=== PATIENT | male | born 1995 | race Caucasian/White ===

== ENCOUNTER 2021-06-22 17:56 | Emergency (ER) | payer OTHER, SELFPAY ==
[2021-06-22 18:12] VITALS: BP 106/69; PULSE 82; RESP 16; TEMP 36.6; O2SAT 99
--- NOTE | 2021-06-22 18:31 | ED.EAR ---
HPI - Ear Problem General Chief complaint: Ear Stated complaint: ear pain Source: patient Mode of arrival: ambulatory Limitations: no limitations History of Present Illness HPI Narrative: Patient is a 25-year-old male who presents complaining of pruritus to bilateral ears and pain to left ear. He reports mild itching x2 weeks, increasing over the past 2 days. He reports pain to left ear starting this a.m. He denies rhinorrhea or congestion, sore throat, chills body aches or fever. Patient reports vaccinated for Covid x2. He denies significant medical history. He denies all complaints at this time. Complaint: ear pain Related Data Allergies Allergy/AdvReac Type Severity Reaction Status Date / Time No Known Allergies Allergy Verified 06/22/21 18:29 Review of Systems Review of Systems: CONSTITUTIONAL: Denies fever, chills, or sweats. EYES: Denies visual changes, redness, or discharge. ENT: Reports left ear pain CARDIOVASCULAR: Denies chest pain, palpitations, or edema. RESPIRATORY: Denies cough or dyspnea. GASTROINTESTINAL: Denies abdominal pain, nausea, vomiting, or diarrhea. GENITOURINARY: Denies dysuria or hematuria. SKIN: Denies rash or itching. MUSCULOSKELETAL: Denies back pain, joint pain, or myalgia. NEUROLOGIC: Denies headache, numbness, dizziness, or weakness. PSYCHIATRIC: Denies anxiety or depression. [facility] Past Medical History Medical History (Updated 06/22/21 @ 18:36 by HAYLEE Dorsey) Asthma Social History Social History (Updated 06/22/21 @ 18:32 by HAYLEE Dorsey) Smoking status: Never smoker Alcohol intake: never Substance use: never Living arrangements: with family Occupation/Education: student Comments At the time of signature, I have reviewed and agree with nursing past medical, surgical, social, and family history unless otherwise noted. Please see nursing chart for further information. There is no relevant family history pertinent to the presenting complaint. Exam Narrative: GENERAL: Well-appearing, well-nourished, and in no acute distress. HEAD: Normocephalic, atraumatic. EYES: EOMI. No redness or drainage. Conjunctiva are normal. ENT: Mucous membranes pink and moist. Left ear canal erythematous, TM normal CHEST: No respiratory distress. HEART: Regular rate and rhythm. EXTREMITIES: Normal range of motion. No edema. SKIN: Warm, dry, no rash. NEURO: No focal deficits. Alert and oriented x3. Gait steady. PSYCH: Normal affect. No signs of depression or anxiety. Course Vital Signs Vital signs: Vital Signs Temperature 36.6 C 06/22/21 18:12 Pulse Rate 82 06/22/21 18:12 Respiratory Rate 16 06/22/21 18:12 Blood Pressure 106/69 06/22/21 18:12 Pulse Oximetry 99 06/22/21 18:12 Temperature 36.6 C 06/22/21 18:12 Pulse Rate 82 06/22/21 18:12 Respiratory Rate 16 06/22/21 18:12 Blood Pressure 106/69 06/22/21 18:12 Pulse Oximetry 99 06/22/21 18:12 Reviewed Medical Decision Making MDM Narrative Medical decision making narrative: Patient appears to have left otitis externa. Discussed her drug with patient. Discussed use of Tylenol or ibuprofen for pain. Patient agrees with plan of care. Patient is stable for discharge home with outpatient follow-up as needed. Vital Signs Vital Signs: Vital Signs Temperature 36.6 C 06/22/21 18:12 Pulse Rate 82 06/22/21 18:12 Respiratory Rate 16 06/22/21 18:12 Blood Pressure 106/69 06/22/21 18:12 Pulse Oximetry 99 06/22/21 18:12 Temperature 36.6 C 06/22/21 18:12 Pulse Rate 82 06/22/21 18:12 Respiratory Rate 16 06/22/21 18:12 Blood Pressure 106/69 06/22/21 18:12 Pulse Oximetry 99 06/22/21 18:12 Reviewed Critical Care Time Critical Care Time Critical Care Time: No Discharge Plan Discharge Clinical Impression: Otitis externa Patient Disposition: Home, Self-Care Condition: Stable Instructions: Antibiotic Form, Swimmer's Ear (GEN) A
== END 2021-06-22 18:58 | disposition home or self-care (01) ==
PROVIDERS: Emergency Provider Nurse Practitioner
DX: H60.92 Unspecified otitis externa, left ear (principal); J45.909 Unspecified asthma, uncomplicated
CPT/HCPCS: 99213; G0463

== ENCOUNTER 2021-06-30 11:46 | Emergency (ER) | payer OTHER, SELFPAY ==
--- NOTE | ~2021-06-30 | XR_ITS ---
XR shoulder LT min 2V 06/30/2021 12:09 INDICATION: Left shoulder pain PROCEDURE: 4 views left shoulder COMPARISON: No prior studies for comparison. FINDINGS: Fracture, dislocation or subluxation is not identified. The soft tissues appear within norm al limits. No foreign bodies are identified. IMPRESSION: 1: NO ACUTE BONE OR JOINT ABNORMALITY IDENTIFIED. Reviewed, dictated and finalized at location A.
[2021-06-30 11:53] VITALS: BP 118/77; PULSE 79; RESP 18; TEMP 36.9; O2SAT 100
--- NOTE | 2021-06-30 11:54 | ED.UPPEXIN ---
HPI - Extremity Injury (Upper) General Chief Complaint: Extremity Injury, Upper Stated Complaint: L SHOULDER PAIN Time Seen by Provider: 06/30/21 11:54 Source: patient and RN notes reviewed Mode of arrival: ambulatory Limitations: no limitations History of Present Illness HPI narrative: 25-year-old male presents to the [facility] with complaints of left anterior shoulder pain for about 1 month. Related Data Allergies Allergy/AdvReac Type Severity Reaction Status Date / Time No Known Allergies Allergy Verified 06/22/21 18:29 Review of Systems Review of Systems: All systems reviewed & are unremarkable except as noted in HPI and below Constitutional: Constitutional: Reports no additional constitutional complaints, Denies chills and Denies fever(s) Eyes: Eyes: Reports no additional eye complaints ENT: Reports system reviewed and no additional complaints, except as documented Cardiovascular: Cardiovascular: Reports no additional cardiovascular complaints Respiratory: Respiratory: Reports no additional respiratory complaints Musculoskeletal: Musculoskeletal: Reports as per HPI and Reports arthralgias (left shoulder) Integumentary/Breasts: Skin/Breast: Reports system reviewed and no additional complaints, except as docu Neurologic: Reports system reviewed and no additional complaints, except as documented Psychiatric: Psychiatric: Reports no additional psychiatric complaints Allergic/Immunologic: Allergic/Immunologic: Reports no additional allergic/immunologic complaints PMFSH Past Medical History Medical History Asthma Surgical History Surgical History (Updated 06/30/21 @ 14:42 by Margo Vergara) No history of previous surgery Social History Social History Smoking status: Never smoker Alcohol intake: never Substance use: never Comments At the time of my signature, I reviewed and agree with the nursing past medical, surgical, social, and family history. There is no relevant family history pertinent to the patient complaint. Exam Const: General: healthy appearing, no acute distress and alert Nutritional Appearance: well nourished and thin Orientation/consciousness: patient oriented x3 Limitations: no limitations HENMT: Head: normal to inspection Eyes: Pupils: Equal, round and reactive pupils present Neck: Neck: normal visual inspection, no lymphadenopathy and no meningeal signs Chest: Chest palpation & inspection: normal inspection of the chest Resp: Effort & Inspection: normal respiratory effort and no use of accessory muscles Auscultation: clear to auscultation bilaterally, no crackles, no rales, no rhonchi and no wheezes Cardio: Rate: regular rate Rhythm: regular rhythm Back/Spine/Pelvis: Back: no CVA tenderness Skin: General skin exam: normal color Rashes: no rashes Wounds: no wounds Neuro: General: patient oriented x3, moves all extremities, no meningeal signs and no focal motor deficits Speech: normal speech Gait exam (Neuro): Normal gait present Extrem: General: normal to inspection and no pedal edema Left upper extremity: shoulder/upper arm tenderness of the A-C joint (Anterior), axillary nerve sensory function normal and normal ROM; no abrasions, no ecchymosis, no foreign bodies, no penetrating wound, no deformity and no unsual warmth Shoulder/upper arm images: 1. tender to palpation. Pain with ROM. NO bruising or swelling Psych: Appearance: grossly normal and well kempt Mental Status: mental status grossly normal Affect: normal affect Attitude: cooperative Thought content: Yes Normal thought content present Course Course Emergency Course: Discharge instructions reviewed with patient, as well as provided in writing per nursing staff. The instructions also include specific and strict return/GO TO THE ER as well as f/u information. All questions have been answere
== END 2021-06-30 12:30 | disposition home or self-care (01) ==
PROVIDERS: Emergency Provider Nurse Practitioner
DX: S46.912A Strain of unspecified muscle, fascia and tendon at shoulder and upper arm level, left arm, initial encounter (principal); X58.XXXA Exposure to other specified factors, initial encounter; J45.909 Unspecified asthma, uncomplicated
CPT/HCPCS: 73030; 99213; G0463

== ENCOUNTER 2025-06-18 08:11 | Emergency (ER) | payer OTHER, MEDICAID, SELFPAY ==
--- NOTE | 2025-06-18 08:14 | ED_ITS ---
HPI - Headache General Chief Complaint: Headache Stated Complaint: Headache Source: patient and RN notes reviewed Mode of arrival: ambulatory Limitations: no limitations History of Present Illness HPI Narrative: Patient is a 29-year-old male who presents to the [facility] with complaints of headache. He states that the headache has been ongoing for over the past week. He states that he had a mild intermittent headache when he was sick last week with cough and congestion. He states that the cough and congestion resolved, but the intermittent headache has continued. He denies recent fevers. Denies dizziness or visual disturbance. Patient does report history of migraine headaches. He states that he does work nights and has been on this cycle for the past 4 months, so he does not know if that is contributing to the headache. Patient is alert and oriented x4 with no obvious neurological deficits. Related Data Allergies Allergy/AdvReac Type Severity Reaction Status Date / Time No Known Allergies Allergy Verified 06/18/25 08:24 Review of Systems Review of Systems: CONSTITUTIONAL: Denies fever, chills, or sweats. EYES: Denies visual changes, redness, or discharge. ENT: Denies otalgia and sore throat CARDIOVASCULAR: Denies chest pain, palpitations, or edema. RESPIRATORY: Denies cough or dyspnea. GASTROINTESTINAL: Denies abdominal pain, nausea, vomiting, or diarrhea. GENITOURINARY: Denies dysuria or hematuria. SKIN: Denies rash or itching. MUSCULOSKELETAL: Denies back pain, joint pain, or myalgia. NEUROLOGIC: Reports headache but denies numbness or weakness. Pertinent positives per HPI. PMFSH Past Medical History Medical History Asthma Surgical History Surgical History No history of previous surgery Social History Social History Smoking status: Never smoker Alcohol intake: never Substance use: never Living arrangements: with family Occupation/Education: student Comments At the time of my signature, I reviewed and agree with the nursing past medical, surgical, social, and family history. There is no relevant family history pertinent to the patient complaint. Exam Narrative: GENERAL: This is a well-nourished, well-developed patient, in no apparent distress. HEAD: normocephalic, atraumatic. EYES: PERRL. Sclera clear/white. Vision is grossly intact. EARS: External ears normal, auditory canals clear and without drainage, TMs normal without perforation. Hearing grossly intact. NOSE: External nose normal with no obvious nasal discharge, nares without redness, no rhinorrhea. THROAT: Mucous membranes moist, posterior pharynx clear. NECK: Neck supple, non-tender without lymphadenopathy, masses or thyromegaly. CARDIOVASCULAR: Regular rate and rhythm without murmurs, gallops, or rubs. RESPIRATORY: Clear to auscultation. Breath sounds equal bilaterally. No wheezes, rales, or rhonchi. GASTROINTESTINAL: Abdomen soft, non-tender, nondistended. Bowel sounds are active. No hepato-splenomegaly, or palpable masses. No guarding. SKIN: warm, intact with no suspicious lesions or rash, good texture and turgor. NEURO: awake, alert, and oriented to person, place and time. There were no obvious focal neurologic abnormalities. Course Course Level of Care: Express Care Visit Vital Signs Vital signs: Vital Signs Temperature 98.2 F 06/18/25 08:22 Pulse Rate 72 06/18/25 08:22 Respiratory Rate 16 06/18/25 08:22 Blood Pressure 120/81 06/18/25 08:22 Pulse Oximetry 100 06/18/25 08:22 Temperature 98.2 F 06/18/25 08:22 Pulse Rate 72 06/18/25 08:22 Respiratory Rate 16 06/18/25 08:22 Blood Pressure 120/81 06/18/25 08:22 Pulse Oximetry 100 06/18/25 08:22 Reviewed MDM - Headache MDM Narrative Medical decision making narrative: Patient was given a dose of IM dexamethasone IM Toradol for relief of his headache. He will be prescribed Toradol to take p.r.n. as well as Flonase. Advised follow-up with primary care physician. Advised he go to the ED with worsening symptoms or development of fever. Differential Diagnosis Differential diagnosis: Likely migraine, tension headache, headache, sinusitis and other (viral illness) Critical Care Time Critical Care Time Critical Care Time: No Discharge Plan Discharge Clinical Impression: Headache Qualifiers: Headache type: unspecified Headache chronicity pattern: acute headache Intractability: not intractable Qualified Code(s): R51.9 - Headache, unspecified Patient Disposition: Home Condition: Stable Instructions: Acute Headache (ED) Additional Instructions: Take medications as prescribed. Follow-up with primary care physician. Go to the ED with worsening symptoms or development of fever. Patient Language: Serbian Prescriptions: New ketorolac 10 mg tablet 10 mg PO Q8H PRN (Reason: pain) Qty: 20 0RF Rx Instructions: maximum total duration of 5 days from all oral, intranasal, or parenteral formulations fluticasone propionate [Flonase Allergy Relief] 50 mcg/actuation spray,suspension 1 spray intranasal BID Qty: 16 0RF Rx Instructions: administer into each nostril Follow-up/Referrals: UNKNOWN,DOCTOR [Non-Staff] Time of Disposition: 08:31
[2025-06-18 08:22] VITALS: BP 120/81; PULSE 72; RESP 16; TEMP 36.8; O2SAT 100
[2025-06-18] MEDS: KETOROLAC (*BKC) 60 MG/2 ML VIAL IM (08:34)
[2025-06-18] MEDS: dexAMETHasone SOD PHOS INJ 10 MG/ML 1 ML VIAL 8 MG IM (08:35)
== END 2025-06-18 08:43 | disposition home or self-care (01) ==
PROVIDERS: Emergency Provider Nurse Practitioner
DX: R51.9 Headache, unspecified (principal); J45.909 Unspecified asthma, uncomplicated
CPT/HCPCS: 96372; 99214; G0463; J1100; J1885

== ENCOUNTER 2025-09-30 08:17 | Emergency (ER) | payer OTHER, SELFPAY ==
--- NOTE | ~2025-09-30 | XR_ITS ---
Examination: XR abdomen/kub 1V Clinical History: Bilateral Flank pain x 4 days, denies hx of stones Comparison: None Technique: 2 views supine abdomen Findings: Lung bases clear. No abnormal abdominal calcifications identified. Scattered colonic gas and stool. Liver enlarged. No acute bony abnormality. IMPRESSION: 1. No nephroureteral stones identified. 2. No acute abnormality. Reviewed, dictated and finalized at location R. POINTER
[2025-09-30 08:32] VITALS: BP 124/77; PULSE 83; RESP 16; TEMP 36.8; O2SAT 100
--- NOTE | 2025-09-30 08:49 | ED.MALEGU ---
HPI - Male Genitourinary General Chief complaint: Urogenital-Male Stated complaint: Side Pain Time Seen by Provider: 09/30/25 08:50 Source: patient and RN notes reviewed Mode of arrival: ambulatory Limitations: no limitations History of Present Illness HPI Narrative: 30-year-old male presents with concern for bilateral flank pain this started 5 days ago. He reports he had 1 episode of dysuria the last about a couple hours last week but otherwise no issues. He denies frequency urgency. He denies general malaise, fever, body aches, chills, sweats. Reports occasional nausea without vomiting. Reports intermittent lower abdominal discomfort. He reports when he drinks more water the symptoms are improved. He reports symptoms are not positional, he denies any aggravating factors. MD Complaint: other (Flank pain) Related Data Home Medications ?Medication ?Instructions ?Recorded ?Confirmed ?Last Taken ?Type No Home Medications 09/30/25 09/30/25 Unknown History Allergies Allergy/AdvReac Type Severity Reaction Status Date / Time No Known Allergies Allergy Verified 09/30/25 09:35 Review of Systems Review of Systems: CONSTITUTIONAL: Denies malaise, chills, sweats, or fever. CARDIOVASCULAR: Denies chest pain, palpitations, or edema. RESPIRATORY: Denies cough or dyspnea. GASTROINTESTINAL: Denies abdominal pain, nausea, vomiting, diarrhea GENITOURINARY: Reports 1 episode of dysuria. Denies frequency, urgency, suprapubic pressure. Reports bilateral flank pain. Denies hematuria. SKIN: Denies rash or itching. MUSCULOSKELETAL: Denies back pain or myalgia. All systems reviewed & are unremarkable except as noted in HPI and below [facility] Past Medical History Medical History Asthma Surgical History Surgical History No history of previous surgery Social History Social History Smoking status: Never smoker Alcohol intake: never Substance use: never Living arrangements: with family Occupation/Education: student Comments At time of signature, agree with nursing past medical, surgical, social and family history. There is no relevant family history pertinent to the presenting complaint Exam Narrative: GENERAL: Well-appearing, well-nourished, and in no acute distress. HEAD: Normocephalic. EYES: PERRLA, conjunctivae clear. NECK: Supple. No lymphadenopathy CHEST: Clear to auscultation. No respiratory distress. No jugular venous distension, thyromegaly, or carotid bruits. Carotids were easily palpable bilaterally. HEART: Regular rate and rhythm. ABDOMEN: Soft, mild lower abdominal discomfort, nondistended, no palpable or pulsatile masses, no guarding. No CVA tenderness EXTREMITIES: Normal range of motion. No edema. Normal strength and sensation. SKIN: Warm, dry, no rash. NEURO: Alert and oriented x3. PSYCH: Normal mood and affect Course Course Emergency Course: Patient is aware of diagnosis, understands and agrees to treatment plan. Anticipatory guidance given. Patient agrees to follow-up as directed and is aware of reasons to seek care at the emergency department. Portions of this record may have been created with voice recognition software Level of Care: Express [facility] Visit Vital Signs Vital signs: Vital Signs Temperature 98.3 F 09/30/25 08:32 Pulse Rate 83 09/30/25 08:32 Respiratory Rate 16 09/30/25 08:32 Blood Pressure 124/77 09/30/25 08:32 Pulse Oximetry 100 09/30/25 08:32 Temperature 98.3 F 09/30/25 08:32 Pulse Rate 83 09/30/25 08:32 Respiratory Rate 16 09/30/25 08:32 Blood Pressure 124/77 09/30/25 08:32 Pulse Oximetry 100 09/30/25 08:32 [facility] MDM Narrative Medical decision making narrative: Patient's urinalysis is normal, KUB does dot demonstrate calcifications. Patient is well-appearing and in no acute distress, is not having any fever, body aches, chills, sweats or UTI symptoms. Patient mild bilateral CVA tenderness and mild tenderness to deep palpation. Patient is not jaundiced. KUB does demonstrate liver enlargement. This was discussed with the patient in his options were given to him for follow-up with primary care versus transfer to the emergency department. Patient has an appoint with his primary care doctor and prefers to wait and keep that appointment and will go to the emergency room if his symptoms worsen. He was given reasons to seek care in the emergency room Differential Diagnosis Differential Diagnosis: I evaluated this patient in the express care. History is obtained from patient who is an independent historian and physical exam was performed.? Available medical records were reviewed. ? Exam findings and relevant testing show no acute concerns or changes; patient is non-toxic appearing and is in no distress. ? Exam findings and UA show no acute concerns or changes; patient is non-toxic appearing and is in no distress. No CMT, adnexal tenderness, or evidence of pelvic etiology. Differential diagnosis include pyelonephritis, STI, cystitis, urinary tract infection, acute abdomen, gastroenteritis, yeast infection Differential diagnosis and treatment plan were discussed with the patient. Patient agrees with discussion and after shared medical decision making agrees with plan of care. All questions were answered to the patient's satisfaction. Patient is appropriate for outpatient treatment and follow-up. Imaging Data My impression: Images reviewed, interpreted by radiologist, agree, see report. Radiologist's impression: Clinical History: Bilateral Flank pain x 4 days, denies hx of stones Comparison: None Technique: 2 views supine abdomen Findings: Lung bases clear. No abnormal abdominal calcifications identified. Scattered colonic gas and stool. Liver enlarged. No acute bony abnormality. IMPRESSION: 1. No nephroureteral stones identified. 2. No acute abnormality. Discharge Plan Discharge Clinical Impression: Hepatomegaly Patient Disposition: Home Condition: Stable Instructions: General Patient Instructions, Flank Pain (ED) Additional Instructions: 1) Please follow-up with your primary care doctor, you were given referral for on-call medical doctor if you can see your primary care doctor soon.. 2) If you have any worsening of symptoms such as worsening pain, nausea, vomiting, trouble breathing, general malaise or fever, yellow skin or yellow urine, or any other urgent concerns please go to the ER. 3) Please continue taking your home medications as usual. 4) Please read and follow information included in discharge instructions. Patient Language: Mozambican Prescriptions: No Action No Home Medications Follow-up/Referrals: PHYSICIAN,ASSISTANT DIRECTOR OF FINANCIAL AID [Primary Care Provider, Internal Medicine] Time of Disposition: 09:40
[2025-09-30 09:10] LABS: EDUAAPPEAR Clear; EDUABILI Negative (Negative); EDUABLOOD Negative (Negative); EDUACOLOR1 Yellow; EDUAGLUCOSE Negative (Negative); EDUAKETONE Negative (Negative); EDUALEUKO Negative (Negative); EDUANITRATE Negative (Negative); EDUAPH 7.0; EDUAPROTEIN Negative (Negative); EDUASPGRAVITY 1.010; EDUAUROBILI 0.2
== END 2025-09-30 09:42 | disposition home or self-care (01) ==
PROVIDERS: Emergency Provider Nurse Practitioner
DX: R16.0 Hepatomegaly, not elsewhere classified (principal); J45.909 Unspecified asthma, uncomplicated
CPT/HCPCS: 74018; 81003; 99213; G0463